=== PATIENT | male | born 1970 | race Caucasian/White ===

== ENCOUNTER 2018-02-13 11:23 | Inpatient (IN) | payer OTHER ==
[~2018-02-13] VITALS: Ht 175.3 cm; Wt 83.9 kg
[~2018-02-13 11:23] MED LIST: AMOX1TAB12 PO; KEFLEX500 MG PO
[2018-02-13] MEDS ORDERED: CIPRO100 MG (11:39)
== END 2018-02-17 14:04 | disposition home or self-care (01) | DRG 392 ==
LOC: ER 11:23 → SEC-K 19:59 → SURH 20:48
PROC: BW25YZZ Computerized Tomography (CT Scan) of Chest, Abdomen and Pelvis using Other Contrast (ICD-10-PCS; 2018-02-13)
PROC: 3E0336Z Introduction of Nutritional Substance into Peripheral Vein, Percutaneous Approach (ICD-10-PCS; principal; 2018-02-14)
DX: K57.20 Diverticulitis of large intestine with perforation and abscess without bleeding (principal); E86.0 Dehydration; K59.09 Other constipation

== ENCOUNTER 2018-12-20 15:57 | Emergency (ER) | payer OTHER ==
[~2018-12-20] VITALS: Ht 170.2 cm; Wt 79.4 kg
[~2018-12-20 15:57] MED LIST changes: +CIPRO100 MG
== END 2018-12-20 22:23 | disposition home or self-care (01) ==
LOC: ER 15:57
DX: S01.82XA Laceration with foreign body of other part of head, initial encounter (principal); W18.09XA Striking against other object with subsequent fall, initial encounter; Y93.89 Activity, other specified; Y92.89 Other specified places as the place of occurrence of the external cause; Y99.8 Other external cause status

== ENCOUNTER → 2018-12-27 | Emergency (ER) | payer OTHER ==
[~2018-12-27] VITALS: Ht 172.7 cm; Wt 79.4 kg
== END | disposition home or self-care (01) ==
LOC: ER 21:22
DX: Z48.02 Encounter for removal of sutures (principal)

== ENCOUNTER 2022-09-08 19:32 | Emergency (ER) | payer OTHER ==
[~2022-09-08] VITALS: Ht 175.3 cm; Wt 74.8 kg
== END 2022-09-08 22:41 | disposition home or self-care (01) ==
LOC: ER 19:32
DX: S60.571A Other superficial bite of hand of right hand, initial encounter (principal); W54.0XXA Bitten by dog, initial encounter; Y93.89 Activity, other specified; Y92.832 Beach as the place of occurrence of the external cause; Y99.8 Other external cause status; Z88.0 Allergy status to penicillin

== ENCOUNTER 2022-09-21 23:33 | Emergency (ER) | payer OTHER ==
[~2022-09-21] VITALS: Ht 172.7 cm; Wt 77.1 kg
== END 2022-09-22 03:12 | disposition home or self-care (01) ==
LOC: ER 23:33
DX: M54.16 Radiculopathy, lumbar region (principal); Z88.0 Allergy status to penicillin

== ENCOUNTER 2022-11-21 23:58 | Emergency (ER) | payer OTHER ==
[~2022-11-21] VITALS: Ht 172.7 cm; Wt 77.1 kg
[2022-11-22] MEDS ORDERED: NEURONTIN300 MG (00:12)
== END 2022-11-22 02:42 | disposition home or self-care (01) ==
LOC: ER 23:58
DX: M79.671 Pain in right foot (principal); Z88.0 Allergy status to penicillin

== ENCOUNTER 2024-11-30 20:48 | Emergency (ER) | payer OTHER ==
[~2024-11-30] VITALS: Ht 172.7 cm; Wt 81.6 kg
[~2024-11-30 20:48] MED LIST changes: +NEURONTIN300 MG
[2024-11-30] MEDS ORDERED: KETOROLAC TROMETHAMINE 30 MG VIAL IM STA (21:55)
[2024-11-30] MEDS ORDERED: KETOROLAC TROMETHAMINE 30 MG VIAL ONE (22:01)
[2024-11-30 23:18] VITALS: BP 141/84; O2SAT 98
== END 2024-11-30 23:21 | disposition home or self-care (01) ==
LOC: ER 20:48
DX: G89.11 Acute pain due to trauma (principal); M25.521 Pain in right elbow; Z88.0 Allergy status to penicillin
CPT/HCPCS: 73070; 96372; 99283; J1885